=== PATIENT | female | born 1955 | race Caucasian/White ===

== ENCOUNTER 2023-02-23 16:32 | Emergency (ER) | payer MEDICARE, SELFPAY ==
--- NOTE | ~2023-02-23 | CT_ITS ---
EXAMINATION: CT facial & cervical spine wo DATE: 02/23/2023 17:18 INDICATION: Fall. Facial injury, neck pain TECHNIQUE: Computed tomography (CT) of the facial bones and maxillofacial region and cervical spine w as performed without intravenous contrast. Automated exposure control and iterative reconstruction te [place] were employed. Exam dose: 123.96 mGy-cm total exam DLP. COMPARISON: None. FINDINGS: Subcutaneous emphysema is confirmed at the inferior aspect of the left chin. There is a nondisplaced linear fracture of the right mandibular condyle and neck. Normal alignment at the temporal mandibular joints. The nasal bones, anterior maxillary spine, frontozygomatic sutures, zygomatic arches, maxillary bones are intact. The paranasal sinuses are normally aerated without opacification or fluid level. There is straightening of the cervical spine. C1 and C2 are normally aligned and the odontoid process is intact. There is minimal anterolisthesis at C3-4. There is severe degenerative disc disease and mild retrolisthesis at C4-5 and C5-6 and severe degener ative disc disease at C6-7 as well. There is degenerative change at the apophyseal joints. Uncoverteb ral joint spurring is noted in the mid and lower cervical spine. No fracture or dislocation or locked facet or prevertebral soft tissue swelling. IMPRESSION: Nondisplaced linear fracture of the right mandibular condyle and neck Several spondylosis; no cervical spine fracture or dislocation Reviewed, dictated and finalized at [facility]. Reviewed, dictated and finalized at [facility]. IMPRESSION: Nondisplaced linear fracture of the right mandibular condyle and n johnna Several spondylosis; no cervical spine fracture or dislocation
--- NOTE | ~2023-02-23 | CT_ITS ---
EXAMINATION: CT brain wo con DATE: 02/23/2023 17:18 INDICATION: Fall today, striking face. Chin laceration. Generalized neck pain. TECHNIQUE: Computed tomography (CT) of the head was performed without intravenous contrast. The mA wa s adjusted according to patient size. Iterative reconstruction technique was employed. Exam dose: 60 5.33 mGy-cm total exam DLP. COMPARISON: None FINDINGS: No intracranial mass lesion or hemorrhage or cerebrovascular accident. No midline shift or mass effect. No subdural or epidural hematoma. No fracture or bone destruction of the cranial vault. The mastoid air cells and paranasal sinuses are unremarkable. IMPRESSION: No significant abnormality Reviewed, dictated and finalized at [facility]. Reviewed, dictated and finalized at [facility]. IMPRESSION: No significant abnormality
[2023-02-23 16:32] VITALS: BP 173/88; PULSE 72; RESP 18; TEMP 36.3; O2SAT 100
[2023-02-23 16:38] VITALS: BP 173/88; PULSE 71; RESP 18; TEMP 36.2; O2SAT 100
--- NOTE | 2023-02-23 16:42 | ED.FALL ---
HPI - Fall General Chief Complaint: Fall Stated Complaint: Chin laceration Time Seen by Provider: 02/23/23 16:41 History of Present Illness HPI Narrative: This is a 67-year-old female, who denies significant past medical history, presenting to the emergency department after a fall today. The patient states approximately 1 hour prior to arrival, she tripped on a magazine rack, falling first to the knees, then striking her chin. She denies loss of consciousness, but complains of dull 6/10 face and neck pain. She denies chest pain, shortness of breath, palpitations, lightheadedness before and after the fall. She believes her last tetanus vaccination was 7 years ago. Related Data Allergies Allergy/AdvReac Type Severity Reaction Status Date / Time Sulfa (Sulfonamide Allergy Anaphylaxis Verified 02/23/23 16:38 Antibiotics) Review of Systems Review of Systems: CONSTITUTIONAL: Denies fever, chills, or sweats. CARDIOVASCULAR: Denies chest pain, palpitations, or edema. RESPIRATORY: Denies cough or dyspnea. GASTROINTESTINAL: Denies abdominal pain, nausea, vomiting, or diarrhea. GENITOURINARY: Denies dysuria or hematuria. SKIN: Laceration of chin. Denies rash or itching. MUSCULOSKELETAL: Denies back pain, joint pain, or myalgia. NEUROLOGIC: Headache, neck pain denies headache, numbness, dizziness, or weakness. PSYCHIATRIC: Denies anxiety or depression. PMFSH Past Medical History Medical History (Updated 02/23/23 @ 18:46 by Pablo Bentley MD) No significant past medical history Surgical History Surgical History (Updated 02/23/23 @ 16:44 by Pablo Bentley MD) No significant past surgical history Social History Social History (Updated 02/23/23 @ 16:44 by Pablo Bentley MD) Smoking status: Never smoker Alcohol intake: current Drinks per week: 1 Substance use: never Exam Narrative: GENERAL: Well-developed, well-nourished, and in no acute distress. HEAD: Normocephalic, atraumatic. A 2 cm laceration is noted to the inferior aspect of the chin, just left of midline EYES: PERRLA and EOMI. ENT: Nares clear, no rhinorrhea or epistaxis. Mucous membranes moist without obvious lacerations. Oropharynx without tonsillar hypertrophy exudate or other lesions. Bilateral TMs pearly olmedo nonbulging. No hemotympanum NECK: Supple. No adenopathy or masses. No carotid bruits or JVD. Mild midline spine tenderness to palpation at C4 to C6 without step-off or crepitus CHEST: Clear to auscultation. No respiratory distress. No wheezes rales or rhonchi HEART: Regular rate and rhythm. No murmur heard. Normal peripheral pulses. ABDOMEN: Soft, nontender, nondistended, normal active bowel sounds. BACK: No midline spine tenderness to palpation, no step-off or crepitus to EXTREMITIES: No tenderness to palpation over the left wrist, including the anatomical snuffbox. Normal range of motion. No edema. SKIN: Laceration as above. Skin of the warm, dry, no rash. NEURO: No focal deficits. Alert and oriented x3. Strength 5/5 in all extremities, sensation intact bilaterally. No ataxia. Gait normal. PSYCH: Normal mood and affect. Course Course Emergency Course: 18:25 - CT of the face demonstrates a nondisplaced linear fracture of the right mandibular condyle and neck. CT of the head and cervical spine are not concerning for skull fracture, intracranial bleeding, cervical spine fracture/dislocation or other facial fractures. The patient's laceration was closed with absorbable sutures. Please see procedure note. Will discharge with ENT referral with recommended follow-up in 1 to 3 days, antibiotics and pain medications. Discussed return and emergency precautions including signs/symptoms of intracranial hemorrhage and wound infection. The patient voiced understanding and is comfortable with the plan. All questions answered to her satisfaction. Vital Signs Vital signs: Vital Signs Temperature 97.3 F L
[2023-02-23] MEDS: TETANUS,DIPHTHERIA,AC PERTUSSIS ADULT 0.5 ML (ADACEL) IM (17:19)
[2023-02-23] MEDS: ACETAMINOPHEN 500 MG TABLET 1000 MG PO (17:20)
[2023-02-23] MEDS: LIDOCAINE, EPINEPHRINE, TETRACAINE VISCOUS SOLN 3 ML TOPICAL (17:20)
[2023-02-23 18:40] VITALS: BP 169/81; PULSE 75; RESP 17; TEMP 36.4; O2SAT 100
== END 2023-02-23 18:47 | disposition home or self-care (01) ==
PROVIDERS: Emergency Provider Preventive Medicine Aerospace Medicine; PCP Internal Medicine
DX: S01.81XA Laceration without foreign body of other part of head, initial encounter (principal); S02.611A Fracture of condylar process of right mandible, initial encounter for closed fracture; Z23 Encounter for immunization; W01.10XA Fall on same level from slipping, tripping and stumbling with subsequent striking against unspecified object, initial encounter
CPT/HCPCS: 12051; 70450; 70486; 72125; 90471; 90715; 99284

== ENCOUNTER 2025-05-07 19:57 | Emergency (ER) | payer MEDICARE, SELFPAY ==
--- NOTE | ~2025-05-07 | XR_ITS ---
EXAMINATION: XR chest 1V 05/07/2025 20:28 INDICATION: Syncope PROCEDURE: AP view of the chest COMPARISON: No prior studies for comparison. FINDINGS: The lungs are clear. The cardiomediastinal silhouette is within normal limits. There are no pleural effusions. There is no pneumothorax suspected. IMPRESSION: 1: NO ACUTE CARDIOPULMONARY DISEASE. Reviewed, dictated and finalized at [facility].
--- NOTE | ~2025-05-07 | CT_ITS ---
EXAMINATION: CT BRAIN W/O DATE: 05/07/2025 20:26 INDICATION: Status post fall. Head injury. TECHNIQUE: Computed tomography (CT) of the head was performed without intravenous contrast. The dose-length product was 605.33 mGy-cm. Automated exposure control and iterative reconstruction technique were employed. COMPARISON: No prior studies for comparison. FINDINGS: Normal brain parenchymal volume for age. Normal olmedo-white differentiation. No acute intracranial hemorrhage, infarction, mass or mass effect. No ventriculomegaly or midline shift. Midline sagittal images demonstrate a normal corpus callosum, craniovertebral junction and sella turcica. Basilar cisterns are patent. Paranasal sinuses and mastoids are pneumatized. No depressed skull fractures. IMPRESSION: 1. No acute intracranial abnormality. Reviewed, dictated and finalized at [facility].
--- NOTE | ~2025-05-07 | CT_ITS ---
EXAMINATION: CT cervical spine wo con DATE: 05/07/2025 20:26 INDICATION: Status post fall. Neck pain. TECHNIQUE: Computed tomography (CT) of the cervical spine was performed without intravenous contrast. The dose-length product was 91 mGy-cm. COMPARISON: 02/23/2023 FINDINGS: No acute fracture or traumatic malalignment. Lung apices are normal. There is disc narrowing and endplate degenerative change at C4-5, C5-6 and C6-7. There is straightening of cervical lordosis. There is degenerative anterolisthesis at C3-4. No evidence for perched facet. Craniovertebral junction is normal. Odontoid process is normal. IMPRESSION: 1. No acute abnormality of the cervical spine. 2: Severe cervical spondylosis. Reviewed, dictated and finalized at [facility].
[2025-05-07 19:58] VITALS: BP 174/90; PULSE 67; RESP 18; TEMP 36.4; O2SAT 99
--- NOTE | 2025-05-07 20:02 | ECG_ITS ---
Test Date: 2025-05-07 20:09:27 Measurements Intervals [place] Rate: 63 P: 71 DC: 179 QRS: -2 QRSD: 98 T: 57 QT: 406 QTc: 418 Interpretive Statements SINUS RHYTHM BASELINE ARTIFACT- I, II, III, AVR, AVL, AVF, V1-V6 NORMAL ECG No previous ECG available for comparison Electronically Signed On 05-07-2025 20:23:37 CDT by Cristian Robledo D.O.
[2025-05-07 20:38] LABS: Hematocrit 38.2 % (37.0-47.0); Hemoglobin 12.4 g/dL (12.0-15.0); Immature Granulocyte Percent A 0.2 % (0-0.5); Lymphocytes Absolute Auto 1.95 K/mm3 (0.9-3.2); Mean Corpuscular HGB Conc 32.5 g/dl (32-36); Mean Corpuscular Hemoglobin 31.2 pg (26-34); Mean Corpuscular Volume 96.0 fl (80-100); Nucleated Red Blood Cells Absolute Auto 0.000 K/mm3 (0.0-0.012); Nucleated Red Blood Cells Perc 0.0 % (0.0-0.2); Platelet Count Result 208 k/mm3 (150-375); Red Blood Count 3.98 M/mm3 (4.2-5.4); White Blood Count 4.4 K/mm3 (4.5-10.0)
--- NOTE | 2025-05-07 20:41 | ED.FALL ---
HPI - Fall General Chief Complaint: Fall Stated Complaint: fall, dizzy History of Present Illness HPI Narrative: Patient is a 69-year-old female who presents to the emergency department this evening status post a ground level fall sustaining a head injury. Patient states that she when out to an early dinner and had some alcoholic drinks and when she got back in the car she noticed that her stomach was getting upset. Patient states that there are a lot of foods that tend to upset her stomach. She could not get comfortable he and got out of the car and states that the next thing she remembers is lying on the ground. Patient does have a small hematoma to the back of the head otherwise denies any additional symptoms or concerns. Denies any blood thinner use. Patient was placed in a C-collar by EMS prior to arrival. She was ambulatory at the scene. Related Data Allergies Allergy/AdvReac Type Severity Reaction Status Date / Time Sulfa (Sulfonamide Allergy Anaphylaxis Verified 02/23/23 16:38 Antibiotics) Review of Systems Review of Systems: All systems are reviewed and are negative unless stated otherwise in the HPI. [facility] Past Medical History Medical History No significant past medical history Surgical History Surgical History No significant past surgical history Social History Social History Smoking status: Never smoker Alcohol intake: current Drinks per week: 1 Substance use: never Exam Narrative: General: Alert, awake, afebrile, in no acute distress. HEENT: PERRL, no rhinorrhea, no post nasal drip, oropharynx clear, small abrasion to the back of the head. Neck: Trachea midline, no JVD, no lymphadenopathy. Cardiovascular: Regular rate and rhythm, no murmurs, rubs or gallops, no peripheral edema. Respiratory: Clear to auscultation bilaterally, no tachypnea, no wheezing, no rhonchi, no rubs, no respiratory distress. Abdomen: Soft, nontender, nondistended, no rebound, no guarding, no peritoneal signs. Musculoskeletal: No joint swelling or deformity, normal muscle tone. Skin: No rashes or petechia, no signs of infection. Psychiatric: Alert and oriented, normal behavior and judgment for situation. Neurological: Alert and oriented to person, place, and time. Follows all commands. No focal deficits, speech is clear and fluent. Course Vital Signs Vital signs: Vital Signs Temperature 97.6 F 05/07/25 19:58 Pulse Rate 67 05/07/25 19:58 Respiratory Rate 18 05/07/25 19:58 Blood Pressure 174/90 H 05/07/25 19:58 Pulse Oximetry 99 05/07/25 19:58 Oxygen Delivery Room Air 05/07/25 19:58 Temperature 97.6 F 05/07/25 19:58 Pulse Rate 67 05/07/25 19:58 Respiratory Rate 18 05/07/25 19:58 Blood Pressure 174/90 H 05/07/25 19:58 Pulse Oximetry 99 05/07/25 19:58 Oxygen Delivery Room Air 05/07/25 19:58 MDM - Fall MDM Narrative Medical decision making narrative: The patient was evaluated by myself in the emergency department. History is obtained from patient who is an independent historian and physical exam was performed. External medical records were reviewed at this time. IV was established and pertinent tests were ordered. EKG was obtained which revealed sinus rhythm rate of 60 beats per minute, no evidence of acute ischemia. EKG was independently interpreted by me and is currently pending official cardiology read. Laboratory results obtained revealing no acute process. Troponin negative. Imaging studies obtained included CT brain and C-spine without IV contrast and CXR which was independently interpreted by me revealing no acute process, which is pending final radiology interpretation. Differential diagnosis considerations include dehydration, vasovagal syncope, acute coronary syndrome, acute viral syndrome, fracture, intracranial hemorrhage. Comorbidities impacting this visit include none. I have evaluated and discussed social determinants of health with the patient that could potentially impact subsequent diagnosis and treatment plans. On repeat assessment of the patient, reevaluation revealed that the patient is doing well and is in no acute distress. Patient symptoms have improved since she arrived to our emergency department. Repeat vital signs were all reviewed and noted to be stable. Differential diagnosis and treatment plan were discussed with the patient at bedside. Patient agrees with discussion and after shared medical decision making agrees with discharge. All questions were answered to the patient's satisfaction. Patient will follow up with her PCP in 3-5 days. Patient was provided with strict return precautions and instructed to return to the emergency department if any new or worsening symptoms develop. The patient was discharged in stable condition. Lab Data 05/07/25 20:31 05/07/25 20:31 Labs: Lab Results 05/07/25 Range/Units 20:31 WBC 4.4 L (4.5-10.0) K/mm3 RBC 3.98 L (4.2-5.4) M/mm3 Hgb 12.4 (12.0-15.0) g/dL Hct 38.2 (37.0-47.0) % MCV 96.0 (80-100) fl MCH 31.2 (26-34) pg MCHC 32.5 (32-36) g/dl RDW 12.3 (11.5-14.5) % Plt Count 208 (150-375) k/mm3 MPV 8.9 (7.4-10.4) fl Immature Gran % (Auto) 0.2 (0-0.5) % Neut % (Auto) 48.2 (45.5-73.1) % Lymph % (Auto) 43.9 (18.3-44.2) % Boundary % (Auto) 6.8 (2.6-8.5) % Eos % (Auto) 0.7 (0-4.4) % Baso % (Auto) 0.2 (0.2-1.2) % Lymph # (Auto) 1.95 (0.9-3.2) K/mm3 Boundary # (Auto) 0.3 (0.1-0.6) K/mm3 Eos # (Auto) 0.0 (0-0.3) K/mm3 Baso # (Auto) 0.0 (0.0-0.1) K/mm3 Abs Immat Gran (auto) 0.01 (0.00-0.031) K/mm3 Absolute Neuts (auto) 2.1 (1.3-6.7) K/mm3 Absolute Nucleated RBC 0.000 (0.0-0.012) K/mm3 Nucleated RBC % 0.0 (0.0-0.2) % PT 13.5 (11.1-14.7) Seconds INR 1.0 APTT 26.5 (22.3-36.8) Seconds Sodium 137 (137-145) mmol/L Potassium 3.5 (3.4-5.0) mmol/L Chloride 104 (98-107) mmol/L Carbon Dioxide 28 (22-30) mmol/L Anion Gap 5 (4-12) mmol/L BUN 14 (7-17) mg/dL Creatinine 0.74 (0.7-1.0) mg/dL Estim Creat Clear Calc 47 ml/min Estimated GFR > 60 (59 - ) Glucose 99 (65-110) mg/dL Calcium 9.9 (8.4-10.2) mg/dL Magnesium 2.1 (1.6-2.3) mg/dL Total Bilirubin 0.6 (0.2-1.3) mg/dL AST 41 H (14-36) U/L ALT 29 (6-35) U/L Alkaline Phosphatase 61 (38-126) U/L Troponin I < 0.012 (0.000-0.034) ng/mL Total Protein 6.9 (6.3-8.2) g/dL Albumin 4.2 (3.5-5.1) g/dL Lipase 233 (23-300) U/L Discharge Plan Discharge Clinical Impression: Syncope, Fall from ground level, Head injury Patient Disposition: Home Condition: Improved Instructions: Antibiotic Form, Syncope (DC), Head Injury (ED) Additional Instructions: Please follow-up with your family doctor within the next 3-5 days. Return to the emergency room to be new or worsening symptoms develop. Patient Language: Yoruba Prescriptions: No Action clindamycin HCl 300 mg capsule 600 mg PO Q12H 7 Days Qty: 28 0RF oxycodone-acetaminophen [Endocet] 5-325 mg tablet 1 tablet PO Q12H PRN (Reason: pain, severe) Qty: 10 0RF Triple Antibiotic 3.5mg-400 unit- 5,000 unit/gram ointment 1 applic topical TID Qty: 14 0RF Follow-up/Referrals: Ronald,Alyssa Horta MD [Primary Care Provider, Medical] - 3 Days Time of Disposition: 21:14
[2025-05-07 20:49] LABS: INR 1.0; Prothrombin Time 13.5 Seconds (11.1-14.7)
[2025-05-07 20:50] LABS: Partial Thromboplastin Time 26.5 Seconds (22.3-36.8)
[2025-05-07 21:01] LABS: Alanine Aminotransferase 29 U/L (6-35); Albumin Level 4.2 g/dL (3.5-5.1); Alkaline Phosphatase 61 U/L (38-126); Anion Gap 5 mmol/L (4-12); Aspartate Amino Transferase 41 U/L (14-36); Bilirubin,Total 0.6 mg/dL (0.2-1.3); Blood Urea Nitrogen 14 mg/dL (7-17); Calcium 9.9 mg/dL (8.4-10.2); Carbon Dioxide 28 mmol/L (22-30); Chloride 104 mmol/L (98-107); Estimated CRCL calculation 47 ml/min; Estimated Glomerular Filt Rate > 60; Glucose 99 mg/dL (65-110); Lipase 233 U/L (23-300); Magnesium 2.1 mg/dL (1.6-2.3); Potassium 3.5 mmol/L (3.4-5.0); Sodium 137 mmol/L (137-145); Total Protein 6.9 g/dL (6.3-8.2)
[2025-05-07 21:08] LABS: Troponin I < 0.012 ng/mL (0.000-0.034)
[2025-05-07] MEDS: ACETAMINOPHEN 500 MG TABLET 1000 MG PO (21:13)
== END 2025-05-07 21:38 | disposition home or self-care (01) ==
PROVIDERS: Emergency Provider Emergency Medicine; PCP Internal Medicine
DX: S00.01XA Abrasion of scalp, initial encounter (principal); R55 Syncope and collapse; W18.00XA Striking against unspecified object with subsequent fall, initial encounter
CPT/HCPCS: 36415; 70450; 71045; 72125; 80053; 83690; 83735; 84484; 85025; 85610; 85730; 93005; 99284; A9270